=== PATIENT | male | born 1925 | race Caucasian/White ===

== ENCOUNTER 2016-05-07 14:48 | Inpatient (IN) | payer MEDICARE, OTHER ==
[~2016-05-07] VITALS: Ht 190.5 cm; Wt 74.2 kg
[~2016-05-07 14:48] MED LIST: ALEVE 220MG220 MG PO; ASPIRIN 81M81 MG/TA2 PO; CARVEDILOL PO; FLOMAX 0.40.4 MG/CAP PO; FLONASEALLERGY NS; LANOXIN 0.120.125 MG PO; LOPRESSOR 225 MG/TAB PO; PEPCID 20MG TAB20 MG PO; PLAVIX 75MG TAB75 MG PO; PREDNISONE 5MG5 MG PO; SYNTHROID 0.0.025 MG PO; TOPROL XL25 MG PO; ZITHROMAX Z PA250 MG PO
[2016-05-07] MEDS ORDERED: VITAMINC1000TA (15:23)
[2016-05-07] MEDS ORDERED: ALEVE 220MG220 MG PO (15:24)
[2016-05-07] MEDS ORDERED: MULTI VITAMINS1 TAB PO (15:24)
[2016-05-07 15:49] LABS: BASO % 0.4 % (0.0-2.0); EOS # 0.3 (0.0-0.7); EOS % 2.6 % (0-4.0); GRAN # 7.6 (1.4-6.5); LYMPH # 1.3 (1.2-3.4); LYMPH % 13.3 % (20.0-51.0); MEAN CELL VOLUME 94 fl (80.0-100.0); MEAN CORPUSCULAR HGB CONC 33 g/dl (33.0-37.0); MEAN PLATELET VOLUME 10.3 fl (7.4-10.4); MONO # 0.5 (0.1-0.6); MONO % 5.4 % (1.7-9.3); PLATELET COUNT 170 K/mm3 (130-400); RED BLOOD COUNT 3.68 M/mm3 (4.20-5.60); REDCELL DISTRIBUTION WIDTH-CV 12.4 % (11.5-14.5); WHITE BLOOD COUNT 9.7 K/mm3 (4.8-10.8)
[2016-05-07 15:59] LABS: ADJUSTED CALCIUM 9.5 mg/dL (8.4-10.2); ALBUMIN 3.6 gm/dL (3.5-5.0); BILIRUBIN,TOTAL 0.5 mg/dL (0.0-1.0); CALCIUM 9.2 mg/dL (8.4-10.2); CREATININE, serum 1.07 mg/dL (0.66-1.25); INR 1.1 (0.8-3.0); POTASSIUM 4.5 mmol/L (3.4-5.0); PROTHROMBIN TIME 12.1 SECONDS (9.7-12.8); TOTAL PROTEIN 6.3 gm/dL (6.4-8.2)
[2016-05-07 16:02] LABS: PARTIAL THROMBOPLASTIN TIME 34.2 SECONDS (26.0-37.0)
[2016-05-07 16:19] VITALS: BP 108/58; PULSE 85; TEMP 97.5
[2016-05-07 16:20] LABS: HEMATOCRIT 34.4 % (42.0-52.0); HEMOGLOBIN 11.4 g/dl (13.5-18.0); MEAN CORPUSCULAR HEMOGLOBIN 31 pg (27.0-31.0)
[2016-05-07 20:04] VITALS: BP 94/53; PULSE 84; TEMP 97.7
[2016-05-08] VITALS (13 sets, daily range): BP systolic 83–129; BP diastolic 38–59; PULSE 85–107; TEMP 97.1–98.6
[2016-05-08 04:15] LABS: PH 5 (5-8); SQUAMOUS EPITHELIAL 0-2 /hpf; URINE APPEARANCE Cloudy; URINE BACTERIA None Seen /hpf; URINE BILIRUBIN Negative (NEGATIVE); URINE BLOOD 3+ (NEGATIVE); URINE COLOR Amber; URINE GLUCOSE Negative (NEGATIVE); URINE KETONE Negative (NEGATIVE); URINE RBC >50 /hpf; URINE WBC >50 /hpf
[2016-05-09] VITALS (13 sets, daily range): BP systolic 92–171; BP diastolic 42–92; PULSE 50–107; TEMP 97.8–99.8
[2016-05-09 07:41] LABS: HEMATOCRIT 19.9 % (42.0-52.0); HEMOGLOBIN 6.5 g/dl (13.5-18.0)
[2016-05-09 19:00] LABS: HEMOGLOBIN 8.2 g/dl (13.5-18.0)
[2016-05-10 02:02] VITALS: BP 117/54; PULSE 67; TEMP 97.9
[2016-05-10 04:44] VITALS: BP 131/59; PULSE 75; TEMP 98.3
[2016-05-10 06:44] LABS: HEMATOCRIT 23.4 % (42.0-52.0)
[2016-05-10 07:02] LABS: CALCIUM 8.8 mg/dL (8.4-10.2); CREATININE, serum 1.1 mg/dL (0.66-1.25); POTASSIUM 4.3 mmol/L (3.4-5.0)
[2016-05-10 10:56] VITALS: BP 125/55; PULSE 100; TEMP 99.2
[2016-05-10 14:35] VITALS: BP 129/48; PULSE 101; TEMP 97.3
[2016-05-10] MEDS ORDERED: NORCO 325 MG-51 TAB PO (16:53)
[2016-05-10] MEDS ORDERED: ASPI325T6 PO (16:53)
[2016-05-10 17:53] VITALS: BP 116/62; PULSE 103; TEMP 99.1
[2016-05-10 21:36] VITALS: BP 138/60; PULSE 79
[2016-05-11 04:25] VITALS: BP 113/52; PULSE 67; TEMP 98.2
[2016-05-11 08:01] LABS: HEMATOCRIT 22.1 % (42.0-52.0); HEMOGLOBIN 7.3 g/dl (13.5-18.0)
[2016-05-11] MEDS ORDERED: FERROUS SU325 MG/TAB PO (09:15)
[2016-05-11 09:57] VITALS: BP 93/74; PULSE 99; TEMP 98.3
[2016-05-11 11:29] VITALS: BP 93/74; PULSE 99; TEMP 98.3
[2016-05-11 15:16] VITALS: BP 136/53; PULSE 100; TEMP 98.8
== END 2016-05-11 15:55 | disposition swing bed (61) | DRG 481 ==
LOC: COL.ER 14:48 → SURG 15:43
PROVIDERS: Emergency Medicine; Family Medicine; Orthopaedic Surgery Sports Medicine; Physician Assistant
PROC: 0QS706Z Reposition Left Upper Femur with Intramedullary Internal Fixation Device, Open Approach (ICD-10-PCS; principal; 2016-05-08 08:00)
DX: S72.142A Displaced intertrochanteric fracture of left femur, initial encounter for closed fracture (principal); S42.232A 3-part fracture of surgical neck of left humerus, initial encounter for closed fracture; W18.30XA Fall on same level, unspecified, initial encounter; Z95.0 Presence of cardiac pacemaker; Z95.2 Presence of prosthetic heart valve; M35.3 Polymyalgia rheumatica; Z87.891 Personal history of nicotine dependence; D50.0 Iron deficiency anemia secondary to blood loss (chronic)
CPT/HCPCS: 99222-AI; 99232-AI; 99239; A9284; C1713; J0690; J1100; J1720; J1885; J2270; J2370; J2405; J2704; J3010; J7030; J7120; J7512; P9016